=== PATIENT | female | born 1950 | race Caucasian/White ===

== ENCOUNTER 2017-09-20 12:04 | Emergency (ER) | payer MEDICARE, BC ==
--- NOTE | 2017-09-20 13:17 | CT ---
CT BRAIN NONCONTRAST: DATE: 09-20-17 HISTORY: 66-year-old female status post acute head injury. FINDINGS: There is no midline shift or any other mass effect. There is no evidence of acute intracranial hemor rhage, large cortical infarct, obstructive hydrocephalus, or extraaxial fluid collection. The calvar ium is intact. IMPRESSION: No acute intracranial findings. akua POS: [facility]
== END 2017-09-20 13:18 | disposition home or self-care (01) ==
LOC: BURERS 12:04
DX: S09.90XA Unspecified injury of head, initial encounter (principal); E11.9 Type 2 diabetes mellitus without complications; E03.9 Hypothyroidism, unspecified; I10 Essential (primary) hypertension; F32.9 Major depressive disorder, single episode, unspecified; Z79.82 Long term (current) use of aspirin; Z79.899 Other long term (current) drug therapy; W01.0XXA Fall on same level from slipping, tripping and stumbling without subsequent striking against object, initial encounter
CPT/HCPCS: 70450

== ENCOUNTER 2018-01-21 23:27 | Emergency (ER) | payer MEDICARE, BC ==
[2018-01-21] MEDS ORDERED: Bacitracin Zinc 1 Packet ONE (23:43)
== END 2018-01-21 23:55 | disposition home or self-care (01) ==
LOC: BURERS 23:27
DX: S51.802A Unspecified open wound of left forearm, initial encounter (principal); M19.90 Unspecified osteoarthritis, unspecified site; E11.9 Type 2 diabetes mellitus without complications; E03.9 Hypothyroidism, unspecified; I10 Essential (primary) hypertension; F32.9 Major depressive disorder, single episode, unspecified; Z79.899 Other long term (current) drug therapy; Z79.82 Long term (current) use of aspirin; W18.30XA Fall on same level, unspecified, initial encounter
CPT/HCPCS: 99282

== ENCOUNTER → 2018-03-09 | Emergency (ER) | payer MEDICARE, BC ==
--- NOTE | 2018-03-09 20:33 | CT ---
CT OF THE BRAIN WITHOUT CONTRAST; 03/09/18 Comparison is made with the prior study dated 09/20/17. The ventricles remain normal in size and show no shift. No intracranial bleeding, mass, or sign of ac rina stroke was found. The skull is normal in appearance. The visible paranasal sinuses and mastoid a ir cells are clear. IMPRESSION: No acute intracranial finding. POS: HOME
== END ==
LOC: BURERS 16:22
DX: S09.90XA Unspecified injury of head, initial encounter (principal); E11.9 Type 2 diabetes mellitus without complications; E03.9 Hypothyroidism, unspecified; I10 Essential (primary) hypertension; F32.9 Major depressive disorder, single episode, unspecified; Z79.82 Long term (current) use of aspirin; Z79.899 Other long term (current) drug therapy; W01.198A Fall on same level from slipping, tripping and stumbling with subsequent striking against other object, initial encounter
CPT/HCPCS: 70450

== ENCOUNTER 2018-08-07 17:59 | Emergency (ER) | payer MEDICARE ==
--- NOTE | 2018-08-07 20:46 | CT ---
CT BRAIN PERFORMED WITHOUT CONTRAST ENHANCEMENT: History: Post fall hitting back of head. FINDINGS: Generalized ventricular and sulcal prominence. There are no signs of intracerebral hemorrhage or extr aaxial fluid collections. Mastoid air cells are clear. The mucosal change in the ethmoid air cells an d almost complete opacification of the left sphenoid air cells. IMPRESSION: No acute intracranial abnormality. POS: [facility]
--- NOTE | 2018-08-07 21:23 | RAD ---
LUMBAR SPINE THREE VIEWS: History: Fall with back pain. FINDINGS: The vertebral bodies are normal in height. Degenerative osteophytes are seen along the spine with lu e areas of some mild disc narrowing. No compression fractures. Pedicles are intact. Vascular calcific ations are present. A round somewhat opaque density is seen in the right upper abdomen. This would be in the location of the gallbladder. It does have a typical appearance of a calcified gallbladder. It would be an unusual appearance for sludge. The other possibility is that this is some sort of slight ly hyperdense mass in the right upper quadrant. IMPRESSION: 1. Arthritic changes of the spine with no acute injury. 2. Round somewhat opaque density in the right upper quadrant of uncertain etiology, possibly gallblad debra or some type of slightly hyperdense mass. Further evaluation with a right upper quadrant ultrasou nd may be helpful in assessment. POS: [facility]
== END 2018-08-07 19:25 | disposition home or self-care (01) ==
LOC: BURERS 17:59
DX: S06.0X0A Concussion without loss of consciousness, initial encounter (principal); S39.012A Strain of muscle, fascia and tendon of lower back, initial encounter; E11.9 Type 2 diabetes mellitus without complications; E03.9 Hypothyroidism, unspecified; I10 Essential (primary) hypertension; F32.9 Major depressive disorder, single episode, unspecified; Z79.82 Long term (current) use of aspirin; Z79.899 Other long term (current) drug therapy; W17.89XA Other fall from one level to another, initial encounter
CPT/HCPCS: 70450; 72100

== ENCOUNTER 2019-03-30 11:52 | Emergency (ER) | payer MEDICARE, OTHER ==
[2019-03-30] MEDS ORDERED: Silver Nitrate Application 1 EACH ONE (15:01)
--- NOTE | 2019-03-30 17:07 | CT ---
CT OF THE BRAIN WITHOUT CONTRAST: 03/30/19 The ventricles are normal in size for age and show no shift. No intracranial bleeding or extra-axial hematoma was seen. The skull appears intact. There is nearly complete opacification of the right maxi llary sinus and mucosal thickening is seen in the left sphenoid sinus and some of the left posterior ethmoid air cells. See CT of the face report to follow. IMPRESSION: No acute intracranial findings. POS: HOME
--- NOTE | 2019-03-30 17:14 | CT ---
CT OF THE FACIAL BONES: 03/30/[address] of the face was done following trauma. Axial slices were acquired followed by coronal and s agittal reconstructions. There is nearly complete opacification of the right maxillary sinus. The anterior, lateral and medial byrne of the sinus appear intact. There are some unusual lines in the roof of this sinus/floor of th e right orbit. I cannot absolutely confirm if these are fracture lines or not, however, even if they are, there is no significant displacement of fragments from the orbital floor. Concomitantly, there i s definite mucosa thickening in the left side of the sphenoid sinus and several of the left posterior ethmoid air cells. Thus, chronic sinusitis is present in this patient anyway. The appearance in the right maxillary sinus seems more like mucosal thickening than acute fluid. The nasal bones appear intact. The right nasal bone turns inward a little more than the left, but the re is no septal deviation or evidence of definite acute fracture here. The zygomatic arches are intac t, as is the mandible. IMPRESSION: 1. Findings consistent with chronic sinusitis with changes in the left sphenoid and left ethmoid air cells and presumably the right maxillary sinus. 2. Some equivocal lines in the floor of the right orbit anteriorly. Even if real, they would rep resent a nondisplaced fracture. (SEE ADDENDUM TO FOLLOW) Findings discussed with Dr. Curry at 1247 on 03/30/19. POS: HOME
== END 2019-03-30 12:58 | disposition home or self-care (01) ==
LOC: BURERS 11:52
DX: S00.83XA Contusion of other part of head, initial encounter (principal); S05.11XA Contusion of eyeball and orbital tissues, right eye, initial encounter; S00.31XA Abrasion of nose, initial encounter; E11.9 Type 2 diabetes mellitus without complications; E03.9 Hypothyroidism, unspecified; I10 Essential (primary) hypertension; Z79.82 Long term (current) use of aspirin; W18.30XA Fall on same level, unspecified, initial encounter
CPT/HCPCS: 70450; 70486

== ENCOUNTER 2020-04-11 00:55 | Inpatient (IN) | payer MEDICARE ==
[2020-04-11 01:44] LABS: #Basophils 0.1 thou/uL (0.0-0.2); #Lymphocytes 1.6 thou/uL (1.20-3.40); #Monocytes 0.6 thou/uL (0.11-0.59); #Neutrophils 10.1 thou/uL (1.40-6.50); %Basophils 0.8 % (0.0-1.0); %Eosinophils 0.4 % (0.0-10.0); %Lymphocytes 12.9 % (21.0-51.0); %Monocytes 4.7 % (0.0-10.0); %Neutrophils 81.1 % (42.0-75.0); Mean Corpuscular HGB CONC 32.1 g/dL (32.0-36.0); Mean Corpuscular Hemoglobin 28.8 pg (27.0-31.0); Mean Corpuscular Volume 89.5 fL (78.0-98.0); Mean Platelet Volume 8.5 fL (7.4-10.4); Platelet Count 266 thou/uL (130-400); RBC Distribution Width 13.6 % (11.5-14.5); Red Blood Cell (RBC) Count 4.51 mill/uL (4.20-5.40); White Blood Cell (WBC) Count 12.5 thou/uL (4.8-10.8)
[2020-04-11 01:57] LABS: ALT (SGPT) 64 U/L (8-55); AST (SGOT) 117 U/L (5-34); Albumin 3.9 g/dL (3.4-4.8); Alkaline Phosphatase 42 U/L (40-110); Anion Gap 23 mmol/L (10-20); BUN (Urea Nitrogen) 34 mg/dL (9.8-20.1); CK (CPK) 3572 U/L (29-168); Calc. Creatinine Clearance 0 mL/min (70-130); Calcium 9.6 mg/dL (7.8-10.44); Carbon Dioxide 20 mmol/L (23-31); Chloride 104 mmol/L (98-107); Globulin 2.9 g/dL (2.4-3.5); Glucose 165 mg/dL (83-110); Potassium 3.5 mmol/L (3.5-5.1); Protein, Total 6.8 g/dL (6.0-8.3); Sodium 143 mmol/L (136-145)
[2020-04-11 02:01] LABS: INR-International Normal Ratio 1.1; Prothrombin Time 14.7 sec (12.0-14.7)
[2020-04-11 02:07] LABS: Bilirubin Moderate (Negative); Blood, Urine Moderate (Negative); Clarity Slightly Cloudy (Clear); Glucose, Urine (Dipstick) Negative (Negative); Ketone, Urine 15 mg/dL (Negative); Leukocyte Negative (Negative); Nitrite Negative (Negative); Protein, Urine (Dipstick) Trace mg/dL (Neg-Trace); Urobilinogen 0.2 mg/dL (Less than 2)
[2020-04-11] MEDS ORDERED: Famotidine In NaCl 20 mg/50 ml Premix Bag ONE (02:14)
[2020-04-11 02:16] LABS: Bacteria/HPF Rare-Few HPF (None Seen); RBC/HPF 0-3 HPF (0-3); Specific Gravity, Urine 1.026 (1.002-1.036); Squamous Epithelial 0-3 HPF (0-3); WBC/HPF 0-3 HPF (0-3)
[2020-04-11] MEDS ORDERED: Lorazepam 0.5 MG TAB ONE (03:29)
[2020-04-11] MEDS ORDERED: Ondansetron ODT 4 MG TAB SL PRN (05:00)
[2020-04-11] MEDS ORDERED: HYDROcodone/Acetaminophen 5/325 mg Tablet PO PRN (05:00)
[2020-04-11] MEDS ORDERED: Cyclobenzaprine 10 MG TAB PO PRN (06:57)
[2020-04-11] MEDS ORDERED: traMADol HCl 50 MG TAB PO PRN (07:10)
--- NOTE | 2020-04-11 07:12 | CT ---
PRELIMINARY REPORT/[facility]/EMERGENCY AFTER HOURS PROCEDURE: EXAM: CT Head Without Intravenous Contrast. CLINICAL HISTORY: MULTIPLE FALL AND BRUISING, WELFARE CONCERN FROM [place] UNABLE TO GET PT UP. EMS CONCERNED FOR P T SAFETY, BROUGHT TO ED. PT C/O SOME NECK/SHOULDER CRAMPING. IN C-COLLAR ON ARRIVAL, A POSSBILE ALLER GY TO IODINE-NO CONTRAST TECHNIQUE: Axial computed tomography images of the head/brain without intravenous contrast. COMPARISON: None provided. FINDINGS: BRAIN: No acute intraparenchymal hemorrhage. No mass lesion. No CT evidence for acute territorial infarct. N o midline shift or extra-axial collection. VENTRICLES: No hydrocephalus. ORBITS: The orbits are unremarkable. SINUSES AND MASTOIDS: The paranasal sinuses and mastoid air cells are clear. SOFT TISSUES: No significant facial or scalp soft tissue swelling evident. No radiopaque foreign body is seen. BONES: No acute skull fracture. IMPRESSION: No acute intracranial abnormality. ELECTRONICALLY SIGNED BY: Giselle Brown DO Apr 11, 2020 2:44:09 AM [employer] This report is intended for review by the ordering physician only, in accordance of law. If you recei ve this report in error, please call [facility] at [phone]. FINAL REPORT CT OF THE BRAIN WITHOUT CONTRAST: Date: 04/11/[address] of the brain was done following trauma. Comparison made with an 03/30/2019 CT scan. The ventricles are normal in size for age and atrophy and show no shift. No intracranial bleeding, ma ss, or sign of acute stroke found. There is no sign of extra-axial hematoma. The skull appears intact . There is chronic mucosal thickening in the right maxillary sinus, which is substantial, but actuall y improved compared to the 2019 study. There is also chronic thickening in the left side of the sphen oid sinus, slightly more than last year. The mastoid air cells are clear. IMPRESSION: 1. No acute intracranial findings. 2. Chronic sinusitis, particularly right maxillary and left sphenoid. Report in agreement with preliminary reading by [facility]. POS: HOME
--- NOTE | 2020-04-11 07:13 | CT ---
PRELIMINARY REPORT/[facility]/EMERGENCY AFTER HOURS PROCEDURE: EXAM: CT Cervical Spine Without Intravenous Contrast. CLINICAL HISTORY: MULTIPLE FALL AND BRUISING, WELFARE CONCERN FROM [place] UNABLE TO GET PT UP. EMS CONCERNED FOR P T SAFETY, BROUGHT TO ED. PT C/O SOME NECK/SHOULDER CRAMPING. IN C-COLLAR ON ARRIVAL, A POSSBILE ALLER GY TO IODINE-NO CONTRAST TECHNIQUE: Axial computed tomography images of the cervical spine without intravenous contrast. Sagittal and cor onal reformations performed. COMPARISON: None provided. FINDINGS: BONES: No acute fracture or focal osseous lesion. Bony alignment is anatomic. DISCS / DEGENERATIVE CHANGES: Mild spur formation off of the vertebral bodies at the C4 through the C6 vertebral levels. Mild circ umferential bulging discs are present at the C4-5 and C5-6 levels. The spinal canal is adequate at a ll levels. SOFT TISSUES: No prevertebral soft tissue swelling. No apical pneumothorax. IMPRESSION: No acute cervical spine abnormality. Mild cervical spondylosis and degenerative disc change as discu ssed. ELECTRONICALLY SIGNED BY: Giselle Brown DO Apr 11, 2020 2:46:09 AM ROLLER PRINT TENDER This report is intended for review by the ordering physician only, in accordance of law. If you recei ve this report in error, please call [facility] at [phone]. FINAL REPORT CT OF THE CERVICAL SPINE: Date: 04/11/[address] of the cervical spine was performed following trauma. No fracture, dislocation, or soft tissue swelling was seen in the cervical area. There is disc space narrowing at the C4-C5 area. Small osteophytes are seen anteriorly at the mid cervical level. Findings by level follow: C1-C2: No acute findings. C2-C3: No acute findings. C3-C4: No acute findings. C4-C5: Disc osteophyte complex posteriorly without obvious impingement. C5-C6: Small circumferential disc osteophyte complex. No signs of impingement or foraminal narrowing . C6-C7: No acute findings. C7-T1: No acute findings. T1-T2: No acute findings. Bony densities near the tips of the spinous processes of C6 and C7 are probably just ossification of the ligamentum nuchae, less likely old trauma. This is certainly not acute. There are no signs of pneumothorax in the lung apices. No findings of concern were seen in the soft t issues of the neck. IMPRESSION: Cervical spondylosis, but no acute traumatic changes. Report in agreement with preliminary reading by [facility]. POS: HOME
[2020-04-11] MEDS ORDERED: Dextrose 5% in Water 1,000 ML IV PRN (07:14)
[2020-04-11] MEDS ORDERED: Dextrose 50% Abboject 50 ML SYRINGE SLOW IVP PRN (07:14)
--- NOTE | 2020-04-11 07:15 | CT ---
PRELIMINARY REPORT/[facility]/EMERGENCY AFTER HOURS PROCEDURE: EXAM: CT Chest Without Intravenous Contrast. CT Abdomen and Pelvis Without Intravenous Contrast CLINICAL HISTORY: MULTIPLE FALL AND BRUISING, WELFARE CONCERN FROM [place] UNABLE TO GET PT UP. EMS CONCERNED FOR P T SAFETY, BROUGHT TO ED. PT C/O SOME NECK/SHOULDER CRAMPING. IN C-COLLAR ON ARRIVAL, A POSSBILE ALLER GY TO IODINE-NO CONTRAST TECHNIQUE: Axial computed tomography images of the chest, abdomen and pelvis without intravenous contrast. CONTRAST: Without COMPARISON: None provided. FINDINGS: CHEST: LUNGS: No pulmonary mass. No focal airspace consolidation. PLEURAL SPACES: No pleural effusion. No pneumothorax. HEART AND MEDIASTINUM: No cardiomegaly. No significant pericardial effusion. LYMPH NODES: No lymphadenopathy. ABDOMEN AND PELVIS: LIVER: Unremarkable. No focal lesions. GALLBLADDER AND BILE DUCTS: Stones identified within the gallbladder lumen. No dilatation of the biliary ductal system.. PANCREAS: Unremarkable. SPLEEN: Unremarkable. ADRENAL GLANDS: Unremarkable. KIDNEYS, URETERS, AND BLADDER: Unremarkable. No hydronephrosis. Right renal calculi as noted. The partially filled urinary bladde r is unremarkable. STOMACH AND BOWEL: No obstruction. No wall thickening. No CT evidence of colitis or acute diverticulitis. APPENDIX: No CT evidence for appendicitis. PERITONEUM: No free fluid. No free air. LYMPH NODES: No lymphadenopathy. REPRODUCTIVE: The uterus is absent. No pelvic masses. VASCULATURE: No aortic aneurysm. BONES AND SOFT TISSUES: No acute osseous abnormality. The soft tissues are unremarkable. Moderate thoracic and lumbar spondy losis. IMPRESSION: No acute intra-thoracic, intra-abdominal, or intra-pelvic abnormality. Cholelithiasis. Right renal calculi are noted. No hydronephrosis. ELECTRONICALLY SIGNED BY: Giselle Brown DO Apr 11, 2020 2:50:46 AM SPECIAL DELIVERY MESSENGER This report is intended for review by the ordering physician only, in accordance of law. If you recei ve this report in error, please call [facility] at [phone]. FINAL REPORT CT CHEST AND ABDOMEN AND PELVIS WITHOUT CONTRAST: Date: 04/11/[address] of the chest, abdomen, and pelvis was performed following trauma. Axial slices were acquire d, followed by coronal and sagittal reconstructions. CT THORAX: Within the limitations of a noncontrast study, there were no traumatic findings seen. No sign of medi astinal hematoma, aortic aneurysm, or leakage, or pericardial effusion. No mediastinal mass or signif icant adenopathy seen. The lungs are clear with no signs of contusion, pneumothorax, or pleural effus ion. A calcified granuloma is seen in the left lower lobe. Some mild coronary artery calcifications a re present. The thoracic spine and ribs appear intact, as does the sternum. CT ABDOMEN AND PELVIS: Within the limitations of the noncontrast study, there was no sign of laceration or hematoma to any m ajor organ. The liver, spleen, pancreas, adrenal glands, kidneys, and abdominal aorta showed no acute findings. There is at least one large gallstone in the gallbladder and at least one small nonobstruc ting calculus in the lower pole of the right kidney. The bowel is nondistended. There is no inflammatory change associated with bowel. I am not impressed by any extensive diverticulosis, only a few rare diverticula were seen. The appendix appears normal. No free air or free fluid present. CT of the pelvis shows no pelvic masses, signs of hemorrhage, or other fluid collections. The bony pe lvis appears intact. The lumbar spine showed no fracture. There is some mild concentric bulging of th e L2-L3 disc, and to a lesser extent L3-L4. The hips appeared intact. IMPRESSION: 1. No acute traumatic changes in the chest, abdomen, or pelvis. 2. Gallstone. 3. Nonobstructing right renal calculus. Report in agreement with preliminary reading by [facility]. POS: HOME
[2020-04-11 08:08] VITALS: BMI 40.2
[2020-04-11] MEDS: Sodium Chloride 0.9% 1,000 ML IV SCH ×5 (08:36→22:26)
[2020-04-11] MEDS ORDERED: LAMOTRIGINE 100 MG PO SCH (09:00)
[2020-04-11] MEDS ORDERED: metFORMIN 500 MG TAB PO SCH (09:00)
[2020-04-11] MEDS ORDERED: Non-Formulary Item 1 EACH (Metformin Hcl [Metformin Er Gastric] 1,000 MG Tabergr24h) PO SCH (09:00)
[2020-04-11] MEDS ORDERED: Meloxicam 7.5 MG TAB PO SCH (09:00)
[2020-04-11] MEDS ORDERED: SERTRALINE HCL 100 MG PO SCH (09:00)
[2020-04-11] MEDS ORDERED: [UNRECOGNIZED DRUG - OTHER] PO SCH (09:00)
[2020-04-11] MEDS ORDERED: PROPRANOLOL 60 MG PO SCH (09:00)
[2020-04-11] MEDS ORDERED: LOSARTAN PO SCH (09:00)
[2020-04-11] MEDS ORDERED: Non-Formulary Item 1 EACH (Esomeprazole Magnesium [Nexium] 20 MG Capsule.Dr) PO SCH (09:00)
[2020-04-11] MEDS ORDERED: Losartan Potassium 50 MG TAB PO SCH (09:00)
[2020-04-11] MEDS ORDERED: Hydrochlorothiazide 25 MG TAB PO SCH (09:00)
[2020-04-11] MEDS ORDERED: Non-Formulary Item 1 EACH (Levothyroxine Sodium [Synthroid] 200 MCG Tablet) PO SCH (09:00)
[2020-04-11] MEDS ORDERED: HYDROCHLOROTHIAZIDE PO SCH (09:00)
[2020-04-11] MEDS ORDERED: lamoTRIgine 25 MG TAB PO SCH ×2 (09:00→21:00)
[2020-04-11] MEDS ORDERED: MELOXICAM 15 MG PO SCH (09:00)
[2020-04-11 14:03] LABS: #Basophils 0.1 thou/uL (0.0-0.2); #Eosinphils 0.2 thou/uL (0.0-0.7); #Lymphocytes 2.3 thou/uL (1.20-3.40); #Monocytes 0.5 thou/uL (0.11-0.59); #Neutrophils 5.5 thou/uL (1.40-6.50); %Basophils 0.9 % (0.0-1.0); %Eosinophils 2.4 % (0.0-10.0); %Lymphocytes 26.4 % (21.0-51.0); %Monocytes 5.4 % (0.0-10.0); Hemoglobin 11.3 g/dL (12.0-16.0); Mean Corpuscular HGB CONC 29.3 g/dL (32.0-36.0); Mean Corpuscular Hemoglobin 27.6 pg (27.0-31.0); Mean Corpuscular Volume 94.4 fL (78.0-98.0); Mean Platelet Volume 8.4 fL (7.4-10.4); Platelet Count 247 thou/uL (130-400); RBC Distribution Width 14.1 % (11.5-14.5); Red Blood Cell (RBC) Count 4.09 mill/uL (4.20-5.40); White Blood Cell (WBC) Count 8.5 thou/uL (4.8-10.8)
[2020-04-11] MEDS ORDERED: Bisacodyl 5 MG TAB PO PRN (14:17)
[2020-04-11 14:25] LABS: Anion Gap 16 mmol/L (10-20)
[2020-04-11 14:34] LABS: BUN (Urea Nitrogen) 26 mg/dL (9.8-20.1); CK (CPK) 2349 U/L (29-168); Calc. Creatinine Clearance 98 mL/min (70-130); Calcium 8.1 mg/dL (7.8-10.44); Carbon Dioxide 21 mmol/L (23-31); Chloride 106 mmol/L (98-107); Glucose 141 mg/dL (83-110); Potassium 3.4 mmol/L (3.5-5.1); Sodium 140 mmol/L (136-145)
[2020-04-11] MEDS: clonazePAM 0.5 MG TAB PO SCH ×2 (15:45→21:06)
[2020-04-11] MEDS: Propranolol HCl 20 MG TAB PO SCH (15:48)
[2020-04-11] MEDS: Ondansetron PF 4 MG/2 ML Vial IVP PRN (17:53)
[2020-04-11] MEDS ORDERED: FLU VACC QS2020-21(65YR UP)/PF 240 MCG/0.7 ML SYRINGE IM ONE (21:00)
[2020-04-11] MEDS ORDERED: rOPINIRole HCl 2 MG TAB PO SCH (21:00)
[2020-04-11] MEDS ORDERED: Non-Formulary Item 1 EACH (Vitamin B Complex [Vitamin B Complex] 1 EACH Tablet) PO SCH (21:00)
[2020-04-11] MEDS ORDERED: Non-Formulary Item 1 EACH (Trazodone Hcl [Trazodone Hcl] 100 MG Tablet) PO SCH (21:00)
[2020-04-11] MEDS ORDERED: traZODone HCl 50 MG TAB PO SCH (21:00)
[2020-04-11] MEDS ORDERED: ROPINIROLE HCL 1 MG PO SCH (21:00)
[2020-04-11] MEDS ORDERED: Non-Formulary Item 1 EACH (Cholecalciferol (Vitamin D3) [Vitamin D3] 1,000 UNIT Capsule) PO SCH (21:00)
[2020-04-11] MEDS ORDERED: Non-Formulary Item 1 EACH (Lamotrigine [Lamotrigine] 200 MG Tablet) PO SCH (21:00)
[2020-04-11] MEDS ORDERED: DONEPEZIL HCL 5 MG PO SCH (21:00)
[2020-04-11] MEDS: Cholecalciferol 1,000 UNITS (25 MCG) TAB PO SCH (21:06)
[2020-04-11] MEDS: Donepezil HCl 10 MG TAB PO SCH (21:07)
[2020-04-11] MEDS: Stress 600 With Zinc 1 TAB PO SCH (21:08)
[2020-04-11] MEDS: Acetaminophen 325 MG TAB PO PRN (21:19)
[2020-04-11 22:10] LABS: SARS-CoV-2 MS2 Positive; SARS-CoV-2 N Gene Negative; SARS-CoV-2 S Gene Negative; SARS-CoV-2 by NAA Not Detected (NotDetected); SARS-CoV-2 orf1ab Negative
[2020-04-12] MEDS: Levothyroxine Sodium 100 MCG TAB PO SCH (05:46)
[2020-04-12] MEDS: Sodium Chloride 0.9% 1,000 ML IV SCH ×2 (06:38→14:43)
[2020-04-12] MEDS: clonazePAM 0.5 MG TAB PO SCH ×2 (08:05→20:12)
[2020-04-12] MEDS: Propranolol HCl 20 MG TAB PO SCH (08:05)
[2020-04-12 15:17] LABS: Anion Gap 15 mmol/L (10-20); BUN (Urea Nitrogen) 17 mg/dL (9.8-20.1); CK (CPK) 661 U/L (29-168); Calc. Creatinine Clearance 111 mL/min (70-130); Calcium 7.9 mg/dL (7.8-10.44); Carbon Dioxide 22 mmol/L (23-31); Chloride 105 mmol/L (98-107); Glucose 187 mg/dL (83-110); Potassium 3.7 mmol/L (3.5-5.1); Sodium 138 mmol/L (136-145)
[2020-04-12] MEDS: Acetaminophen 325 MG TAB PO PRN ×2 (16:15→20:19)
[2020-04-12] MEDS: Cholecalciferol 1,000 UNITS (25 MCG) TAB PO SCH (20:12)
[2020-04-12] MEDS: Donepezil HCl 10 MG TAB PO SCH (20:12)
[2020-04-12] MEDS: rOPINIRole HCl 2 MG TAB PO SCH (20:12)
[2020-04-12] MEDS: Stress 600 With Zinc 1 TAB PO SCH (20:14)
[2020-04-12] MEDS ORDERED: rOPINIRole HCl 2 MG TAB PO SCH (21:45)
[2020-04-13] MEDS: Acetaminophen 325 MG TAB PO PRN (02:57)
[2020-04-13 05:33] LABS: Anion Gap 17 mmol/L (10-20); BUN (Urea Nitrogen) 13 mg/dL (9.8-20.1); CK (CPK) 300 U/L (29-168); Calc. Creatinine Clearance 124 mL/min (70-130); Calcium 8.2 mg/dL (7.8-10.44); Carbon Dioxide 20 mmol/L (23-31); Chloride 104 mmol/L (98-107); Glucose 145 mg/dL (83-110); Potassium 3.5 mmol/L (3.5-5.1); Sodium 137 mmol/L (136-145)
[2020-04-13] MEDS: Levothyroxine Sodium 100 MCG TAB PO SCH (05:35)
--- NOTE | 2020-04-13 06:19 | HP ---
HISTORY OF PRESENT ILLNESS: This is a 69-year-old female admitted 23 hour observation with rhabdomyolysis from [facility] Emergency Room. She arrived per EMS just after from her home, where she was found lying on the bathroom floor. Her adult daughter had requested a welfare check after the patient failed to answer her phone. She was found confused and disoriented and unable to give an account of her presumed fall or how long she had been lying there. She is afebrile with stable vital signs, but covered in large bruises over her arms, left breast, and abdomen. She complained of neck and shoulder cramping, and restless legs syndrome. Her daughter reports recent multiple falls and alteredmental status. She has a history of dementia, and her home medication list includes multiple sedating agents and three narcotic pain medications. Online prescription drug monitoring program review only shows clonazepam 0.5 mg #60, which she has been prescribed monthly. Her last narcotic pain medication was tramadol in January of 2020. Daughter further reports recent history of confusion, mixing up days and nights, referring to a recent trip taken, going to [place] with her son in law, commenting on her travel, going to a conference, adopting a baby, seeing people,friends, past family members, none of which the daughter reports have taken place, and other accounts of a bizarre nature that have not actually taken place. The patient is unable to say how long she had been lying on the bathroom floor, and the last day she remembers is 3 days ago. Although she admits daily alcohol of "honey whiskey," she would not quantify her daily or recent intake. Daughter agrees that she may be drinking heavily; she lives alone and still drives. Her initial CK was 3572 with elevated WBCs of 12.5 and urine ketones. Her glucose was 165, CO2 of 20, and creatinine 1.05. Below is an initial list of medications either found in home or listed by the patient as taking. She later stated she was no longer taking lamotrigine, which was on the original list, and found in the home. She is followed by Dr. Perry for mental health. She reports a diagnosis of "OCD" and depression. She admits to taking "occasional" hydrocodone from an old prescription. Her daughter reports her home is uninhabitable because of accumulated trash and debris. Her PCP is Dr. Bridges in [facility] her Ortho is Dr. Lauren and Dr. David Perry is her psychiatrist. Her daughter is Selina Conner, cell phone # is [phone]. CURRENT MEDICATIONS: 1. Sertraline 200 mg daily. 2. Klonopin 0.5 mg b.i.d. 3. Propranolol 60 mg. Original med list or found in home: 1. Tramadol 50 mg. 2. Acetaminophen with Codeine. 3. Donepezil 5 mg. 4. Fenofibrate 134 mg. 5. Cyclobenzaprine 10 mg. 6. Lamotrigine 100 mg a.m. and 200 mg p.m. 7. Losartan/hydrochlorothiazide 100/25 daily. 8. Metformin 1000 mg daily. 9. Meloxicam 15 mg. 10. Esomeprazole 40 mg daily. 11. Ropinirole 3 mg at bedtime. 12. Levothyroxine 200 mcg. 13. Trazodone 200 mg at bedtime. 14. Vitamin B complex one daily. 15. Vitamin D3 of 1000 units capsules at bedtime. PAST MEDICAL HISTORY: Hypothyroidism, hypertension, restless legs syndrome, diabetes type 2, and osteoarthritis. On 02/13/2020, she had a left partial rotator cuff tear that was injected by Dr. Lauren. PAST SURGICAL HISTORY: Tonsillectomy, hysterectomy, left shoulder rotator cuff debridement and decompression on 08/02/2011, and right total knee replacement on 03/16/2016. FAMILY HISTORY: She has one living daughter, who is healthy. Her parents are both . ALLERGIES: NO KNOWN ALLERGIES. REVIEW OF SYSTEMS: CONSTITUTIONAL: She denies fevers, chills, sweats, appetite change, or weight loss or gain. EYES: She denies vision changes, eye pain, discharge, or redness. ENT: She denies hearing loss, ear pain, URI, or sore throat. RESPIRATORY: She denies cough, dyspnea, wheeze, or asthma. CV: She denies chest pain, dyspnea on exertion, orthopnea, edema, or claudication. GI: She reports occasional constipation. Denies diarrhea, indigestion, dysphagia, or food allergy intolerances. : She admits urinary frequency. Denies dysuria, nocturia, or incontinence. MUSCULOSKELETAL: She reports multiple joint pains. Denies joint swelling or muscle weakness. SKIN: She denies rash. HEMATOLOGIC/LYMPHATIC: She denies that she bruises easily and has no explanation for the multiple bruises that she currently has. She denies anemia, history of blood clot, or blood cancer. NEURO: She admits forgetfulness and mild dementia and confusion. She denies dizziness. Does not remember passing out. Denies headache. PSYCH: She reports past mental illness, sleep disturbance, depression, and anxiety. PHYSICAL EXAMINATION: VITAL SIGNS: Upon admission; temperature 98, heart rate 84, blood pressure 134/79, respirations 17, and she is 98% on room air. GENERAL APPEARANCE: Alert. She is oriented x3 at present. She was somewhat disheveled. No acute distress. Obese. Her speech is slurred. EYES: Conjunctivae clear. No discharge. ENT: Oral cavity, moist mucous membranes. No ulcer or lesion. Normal dentition. NECK: Thyroid supple. No lymphadenopathy. No JVD. No carotid bruit. No thyromegaly. CV: Regular rate and rhythm. Normal S1 and S2. No murmurs. RESPIRATIONS: Clear to auscultation. Good air entry bilaterally. No crackles or wheezes. ABDOMEN: Soft and nontender. No mass or megaly. Normal bowel sounds. NEURO: CN II through XII grossly intact. She is lying in bed, but motor function appears normal. She is able to move all extremities. SKIN: Without rash. However, she has a large bruises in varying states of healing over arm, forearm, under her breast, right axillary region, right flank, and abdomen. She has no explanation for these bruises. PSYCH: Her mood is wet plant operator, tearful, jovial almost, inappropriate in that she is joking about her situation and her inability to remember what happened and she is unable to recall the incident that occurred 3 days ago. She exhibits thought disorder in that she reported to the nurses that someone was in her bathroom and she threw her silverware and her biscuit from her breakfast tray at this person. LABORATORY DATA: Initial WBC's 12.5, neutrophils 81.1, lymphocytes 12.9, and her H and H were 13 and 40.3. A 12 hours later, H and H were 11.3 and 38.6 and WBC's 8.5. Her INR upon admission was 1.1. Chemistries upon admission; sodium 143, potassium 3.5, chloride 104, carbon dioxide 20, BUN 34, creatinine 1.05, glucose 165, and calcium 9.6. Her lactic acid was 1.1. Her AST was 117 and ALT 64. Her CK was 3572 and 12 hours later, her CK had come down to 2349, COVID negative. IMAGING: CT chest, abdomen, pelvis, C-spine, and head, all negative. ASSESSMENT: Rhabdomyolysis related to immobility for unknown period of days, likely as a result of altered mental status from combination polypharmacy and heavy alcohol use. PLAN: 1. IV hydration. Monitor CK and renal function. 2. Dementia versus delirium related to above. 3. Diabetes mellitus 2. Monitor glucose. Obtain A1c. Resume metformin once renal function normalizes, CK is less than 500, and acidosis resolves. 4. Polypharmacy combined with alcohol abuse. After discussion, the patient agreed to monitored inpatient detox. We will allow q.6 tramadol p.r.n. osteoarthritis joint pain. We will discontinue all narcotic pain medications aside from tramadol. Daughter advised to remove old/out of date medications from home and dispose of safely. Continue her usual b.i.d. benzo. Hold BP medications. Continue beta inocencio and propranolol. Pattern Wheel Maker has been consulted. APS report made. Arrangements will likely need to be made for half-way facility admission once her cognitive status normalizes. Cognitive and functional status is such that she is not safe to discharge home. In any case, she will need help returning to her home to a habitable safe place if she is to return. At this time, she is not safe to return home. Job ID: [id number] [facility]
[2020-04-13] MEDS: rOPINIRole HCl 2 MG TAB PO SCH ×2 (08:04→20:14)
[2020-04-13] MEDS: clonazePAM 0.5 MG TAB PO SCH ×2 (08:04→20:14)
[2020-04-13] MEDS: Losartan Potassium 50 MG TAB PO SCH (08:04)
[2020-04-13] MEDS: Propranolol HCl 20 MG TAB PO SCH (08:04)
[2020-04-13] MEDS ORDERED: Meloxicam 7.5 MG TAB PO SCH (09:00)
[2020-04-13] MEDS: Insulin Regular 300 UNITS/3 ML VIAL SC PRN ×2 (11:47→16:29)
[2020-04-13] MEDS ORDERED: Aspirin 325 MG TAB PO PRN (14:27)
[2020-04-13] MEDS: Acetaminophen 500 MG TAB PO PRN (15:58)
[2020-04-13] MEDS: Stress 600 With Zinc 1 TAB PO SCH (20:13)
[2020-04-13] MEDS: Cholecalciferol 1,000 UNITS (25 MCG) TAB PO SCH (20:13)
[2020-04-13] MEDS: Donepezil HCl 10 MG TAB PO SCH (20:13)
[2020-04-14] MEDS: Levothyroxine Sodium 100 MCG TAB PO SCH (05:28)
[2020-04-14] MEDS: Insulin Regular 300 UNITS/3 ML VIAL SC PRN ×2 (07:40→12:02)
[2020-04-14] MEDS: metFORMIN XR 500 MG TAB PO SCH (09:03)
[2020-04-14] MEDS: Propranolol HCl 20 MG TAB PO SCH (09:03)
[2020-04-14] MEDS: rOPINIRole HCl 2 MG TAB PO SCH (09:03)
[2020-04-14] MEDS: clonazePAM 0.5 MG TAB PO SCH (09:03)
[2020-04-14] MEDS: Losartan Potassium 50 MG TAB PO SCH (09:05)
[2020-04-14] MEDS: Acetaminophen 325 MG TAB PO PRN (09:07)
[2020-04-14 11:43] LABS: Hemoglobin A1c 6.8 % (4.0-6.0)
[2020-04-14 11:48] LABS: Parathyroid Hormone - Intact 30.1 pg/mL (19.8-88.0)
[2020-04-14 19:29] LABS: Band 13 % (5-11); Hemoglobin 12.1 g/dL (12.0-16.0); Lymphocytes 6 % (21-51); MDiff Complete? YES; Mean Corpuscular HGB CONC 31.1 g/dL (32.0-36.0); Mean Corpuscular Hemoglobin 28.1 pg (27.0-31.0); Mean Corpuscular Volume 90.4 fL (78.0-98.0); Mean Platelet Volume 8.2 fL (7.4-10.4); Monocytes 1 % (0-10); Neutrophil 80 % (42-75); Platelet Count 217 thou/uL (130-400); Red Blood Cell (RBC) Count 4.29 mill/uL (4.20-5.40); White Blood Cell (WBC) Count 7.2 thou/uL (4.8-10.8)
[2020-04-14 20:12] LABS: Carbon Dioxide 18 mmol/L (23-31); Chloride 100 mmol/L (98-107); Potassium 4.2 mmol/L (3.5-5.1); Sodium 131 mmol/L (136-145)
[2020-04-14 20:13] LABS: Anion Gap 17 mmol/L (10-20); BUN (Urea Nitrogen) 20 mg/dL (9.8-20.1); Calc. Creatinine Clearance 107 mL/min (70-130); Calcium 8.8 mg/dL (7.8-10.44); Glucose 171 mg/dL (83-110)
[2020-04-14] MEDS ORDERED: Sodium Chloride 0.9% 500 ML IV SCH (21:00)
--- NOTE | 2020-04-14 21:04 | RAD ---
PORTABLE CHEST: Date: 04/14/2020 An AP portable film at 1913 hours is compared with an 04/11/2020 CT scan, as well as a 05/11/[address] x-ray. The vessels seem slightly congested today compared to prior studies. The heart is mildly enlarged. Th ere is increased density in the left lung base, potentially in the lingula. This is not present on th e recent CT scan. Thus, an infiltrate developing here is suspected. I do not see fractures, signs of pneumothorax, or mediastinal widening. Arteriosclerotic change is present in the aorta. IMPRESSION: 1. Mild cardiomegaly and slight vascular congestion. 2. Findings suggestive of a developing left basilar infiltrate. Preliminary report taken to the floor at approximately 1940 hours. POS: HOME
[2020-04-14] MEDS: Sodium Chloride 0.9% 1,000 ML IV SCH (22:34)
[2020-04-14 22:41] LABS: Bilirubin Large (Negative); Blood, Urine Negative (Negative); Clarity Clear (Clear); Glucose, Urine (Dipstick) Negative (Negative); Ketone, Urine Trace mg/dL (Negative); Leukocyte Negative (Negative); Nitrite Negative (Negative); Protein, Urine (Dipstick) > or equal to 300 mg/dL (Neg-Trace); Specific Gravity, Urine 1.025 (1.005-1.030); Urobilinogen > or = 8.0 mg/dL (Less than 2); pH, Urine 5.5 (5.0-9.0)
[2020-04-14 22:42] LABS: Bacteria/HPF Rare-Few HPF (None Seen); Other Microscopic Description C&S SET UP; RBC/HPF 0-3 HPF (0-3); WBC/HPF 0-3 HPF (0-3)
[2020-04-14] MEDS: cefTRIAXone\\ROCEPHIN 2 GM in Sodium Chloride 0.9% 100 ML IVPB SCH (23:19)
[2020-04-15] MEDS: Cholecalciferol 1,000 UNITS (25 MCG) TAB PO SCH ×2 (03:42→20:23)
[2020-04-15] MEDS: clonazePAM 0.5 MG TAB PO SCH ×3 (03:42→20:23)
[2020-04-15] MEDS: Donepezil HCl 10 MG TAB PO SCH ×2 (03:42→20:24)
[2020-04-15] MEDS: Stress 600 With Zinc 1 TAB PO SCH ×2 (03:43→20:23)
[2020-04-15] MEDS: rOPINIRole HCl 2 MG TAB PO SCH ×3 (03:43→20:23)
[2020-04-15] MEDS: Levothyroxine Sodium 100 MCG TAB PO SCH (05:42)
[2020-04-15] MEDS: Propranolol HCl 20 MG TAB PO SCH (08:05)
[2020-04-15] MEDS: metFORMIN XR 500 MG TAB PO SCH (08:06)
[2020-04-15] MEDS: Losartan Potassium 50 MG TAB PO SCH (08:06)
[2020-04-15] MEDS: Insulin Regular 300 UNITS/3 ML VIAL SC PRN ×3 (08:11→17:24)
[2020-04-15 08:25] LABS: Anion Gap 18 mmol/L (10-20); BUN (Urea Nitrogen) 28 mg/dL (9.8-20.1); Calc. Creatinine Clearance 78 mL/min (70-130); Calcium 8.1 mg/dL (7.8-10.44); Carbon Dioxide 18 mmol/L (23-31); Chloride 101 mmol/L (98-107); Glucose 174 mg/dL (83-110); Potassium 4.2 mmol/L (3.5-5.1); Sodium 133 mmol/L (136-145)
[2020-04-15] MEDS: Acetaminophen 500 MG TAB PO PRN (11:47)
[2020-04-15] MEDS ORDERED: Thiamine 100 MG TAB PO SCH (12:30)
[2020-04-15] MEDS ORDERED: Folic Acid 1 MG TAB PO SCH (12:30)
--- OUTSIDE RECORDS SUMMARY | 2020-04-15 12:46 | XMS | Patient Health Record ---
:1950 Author Organization [facility] Care Team Providers Name Role Phone Jaymie Unavailable [phone] Terrance Unavailable [phone] Thanh Unavailable [phone] zzWu Unavailable [phone] Jauregui Unavailable [phone] zzSeward Unavailable [phone] zzOrtiz Unavailable [phone] Venegas Unavailable [phone] zzPerrott Unavailable [phone] Smith Unavailable [phone] PROBLEMS Type Condition ICD9-CM [id number] Onset Condition SNOMED Code Notes Code Code Dates Status Problem Bursitis, Hip or 726.5 Active 41928298 trochanteric Problem DJD (degenerative 715.36 Active 488585830 joint disease) of knee Problem Other affections of 726.2 Active 378937673 shoulder region, not elsewhere classified Problem Primary M17.11 Active 157162454 osteoarthritis of right knee Problem Knee pain 719.46 Active 62211909 Problem Bursitis of M75.51 Active 155031568 shoulder, right Problem Trochanteric M70.61 Active 1494292 bursitis, Right hip Problem Right rotator cuff M75.81 Active 363252403 tendinitis Problem Primary M17.12 Active 795042106 osteoarthritis of left knee Problem 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 5594530156749 knee replacement, right Problem Greater trochanteric M70.62 Active 5896860 bursitis of left hip Problem Acromioclavicular M19.90 Active 104803127 joint arthritis Problem Nontraumatic M75.112 Active 038901607 incomplete tear of left rotator cuff Problem Tear of right M75.101 Active 214477667 rotator cuff, unspecified tear extent Problem Primary M19.011 Active 97018520 osteoarthritis, right shoulder Problem Patellofemoral M17.12 Active 476437242 arthritis of left knee Problem Biceps tendinitis of M75.21 Active 290732470 right shoulder Problem Osteoarthritis of M18.9 Active 99927573 CMC joint of thumb ALLERGIES Allergen (clinical Drug/Non Drug Reaction Allergy Type Onset Date S tatus drug ingredient) Allergy documented on EMR Iodine([facility] Unknown Drug Allergy Active Code:10891-15773) Statins Unknown Drug Allergy Active SOFIA Inhibitors Unknown Drug Allergy Active Sudafed([facility] Unknown Drug Allergy Active Code:[address]-16) povidone-iodine Betadine([facility] Unknown Drug Allergy Activ e Code:[address]-53) PSE Unknown Non Drug Allergy Active topiramate Topamax([facility] Unknown Drug Allergy Active Code:[address]-37) ENCOUNTERS from 1950 to 2020-04-15 Encounter Location Date Provider Diagnosis [facility] [address] Mar, [address] [place] [address] IMMUNIZATIONS Vaccine Route Administration Date Status Depo-Medrol (METHYLPREDnisolone) 80mg Unknown Feb 12, 020 Administered Depo-Medrol (METHYLPREDnisolone) 80mg Unknown May 03 19 Administered SOCIAL HISTORY Tobacco Use: Social History Observation Description Date Details (start date - stop date) Never Smoker Sex Assigned At : Social History Observation Description Sex Assigned At Unknown Smoking Question Answer Notes Are you a: never smoker REASON FOR REFERRAL from 1950 to 2020-04-15 Reason CCM request Referring Provider First Name Myke Referring Provider Last Name Luis Referring Provider Specialty Orthopedic Surgery Referring Provider email [email or web address] Referred Provider [facility], Medical Records Referral Priority Routine VITAL SIGNS from 1950 to 2020-04-15 Weight 230 lbs Jan, Height 62 in Jan, BMI 42.06 kg/m2 Jan, Heart Rate 56 /min Jul, Blood pressure systolic 152 mm Hg Jul, Blood pressure diastolic 63 mm Hg Jul, MEDICATIONS Medication SIG (Take, Route, Notes Start Date End Date Status Frequency, Duration) Tumeric Active Gabapentin 400 MG Orally Active Cozaar Not-Taking Vitamin D Active Fenofibrate Active BuPROPion HCl 300 mg Acti ve [id number]-[id number] Buffered Ac tive Tramadol HCl 50MG TAKE 1 TABLET BY A ctive MOUTH EVERY 6 TO 8 HOURS NEEDED for 13 Propranolol HCl Active Nexium Active Cyclobenzaprine HCl Activ e Clonazepam Active Zoloft 200 mg Active Tramadol 1 tablet every 8 Active hours as needed for pain BETA LYDIA Not-Taking Loratadine Not-Taking B Complex - Orally Active Losartan Potassium 100 MG 1 tablet Orally Once Active a day Aspirin Not-Taking Meloxicam 15MG TAKE ONE TABLET BY Ac tive MOUTH ONCE DAILY for 90 Acetaminophen-Codeine #3 1 tablet as needed Apr, Not-Taking 300-30 MG Orally every 4 hours as needed for pain Hyzaar Not-Taking trazadone Not-Taking Synthroid 225 mg Active Requip Not-Taking Lamotrigine Not-Taking PROCEDURES No Information RESULTS No Results REASON FOR VISIT BSJ Admit, Lt shoulder pain and decreased motion for about 1 month-no injury, Left Hip and Left Knee, Medication request, Tramadol request, Medication Verification , left hand- thumb/nx/ n mri/n surgery, follow up right shoulder pain, right shoulder pain-no new injury, questions and concerns, injection sooner than 3 months?, MRI right shoulder, Recommendation , right shoulder pain and left knee pain.Fell on left knee about 1 month ago, written letter , follow up- right TKR 03-16-16, pain , Post OpRight TKR:DOS 03/16/16, Post Op Right TKR:DOS 03/16/16, driving, outpatient referral , pain medication , re- injured right knee , post op right knee; DOS 03/16/2016, post op question , Right TKR, Request for DME, pain med, bilateral knee pain, Tramadol refill, bilateral knee pain, follow up -bilateral knee pain. Several falls recently, has fallen, Right shoulder MRI results, Right shoulder pain, Rx refill tramadol, bilateral hip pain/right shoulder pain, Post-op Right TKR DOS: 04-29-15, cancel surgery, Discuss right knee surgery, how long the time between dental work and knee replacement surgeryI will have, follow up bilateral knee pain, Medication refill, Medication request, Medication refill, follow up- both knees/nx/ n mri, discuss right shoulder MRI results, MRI Order, about cost for mri., right shoulder pain for about 2 weeks after pushing herself up from the couch. Not treated, right shoulder, left hip pain and follow uo right hip pain, Appointment, Follow up Right Hip , follow up-right hip, follow up left shoulder and right hip, follow up- left shoulder RCR, post op left RCR;dos 08/02/11, Letter , Post op Left Shoulder DOS 08/02/11, Left RCR ( C asst), Rx Request, follow up left shoulder and knees. Injected helped shoulder a little. Right hip also hurts, follow up right hip and new left knee, Right hip pain, follow up left shoulder-MRI results, Discuss right shoulder MRI, MRI results, Appointments Made, MRI request by patient, bilat shoulder pain x 4 months. Patient is also c/o bilateral wrist pain and bilateral knee pain, rc b [id number] MEDICAL (GENERAL) HISTORY Type Description Date Medical History hypertension Medical History Depression Medical History Thyroid Dysfunction Surgical History Tonsillectomy Surgical History Hysterectomy Surgical History L shoulder decompression 2011 Surgical History R TKR 03-16-16 Hospitalization History Left shoulder decompression, AC rese ction 08/02/11 Goals Section No Information Health Concerns No Information MEDICAL EQUIPMENT No Information MENTAL STATUS No Information FUNCTIONAL STATUS No Information ASSESSMENTS Encounter Date Diagnosis Assessment Treatment Notes Treatment Notes Clinical Notes Jan, Nontraumatic Discussed care. I incomplete tear of recommend left rotator cuff conservative care (ICD-10 - M75.112) include NSAID's, ice, heat, rest and intra-articular injections. Today the patient received a left shoulder injection with good relief. If pain persists or worsens we may order a left shoulder MRI to evaluate for possible rotator cuff tear. F/u prn. Apr, Primary osteoarthritis Options were of left knee (ICD-10 - discussed. Patient M17.12) is advised rest, ice, heat, progressive strengthening exercises, and NSAIDs as needed. The left knee is injected with cortisone. We discussed that the ultimate solution would be a left total knee replacement but I am not ready to recommend surgery at this time Apr, Greater trochanteric My inclination is bursitis of left hip that her symptoms (ICD-10 - M70.62) are more related to inflammation of the soft tissues and she should continue to improve with time. Patient is advised rest, ice, heat, and NSAIDs as needed. She may require further workup if symptoms do not improve Jul, Osteoarthritis of CMC Recommend thumb joint of thumb (ICD-10 injection today as - M18.9) first line treatment. Jun, Primary Repeat injection osteoarthritis, right right shoulder. F/u shoulder (ICD-10 - as needed. M19.011) Jun, Biceps tendinitis of right shoulder (ICD-10 - M75.21) Feb, Primary Repeat injection osteoarthritis, right right shoulder. F/u shoulder (ICD-10 - as needed. M19.011) September, Primary Steroid injection osteoarthritis, right right shoulder. shoulder (ICD-10 - M19.011) September, Patellofemoral Gradually increase arthritis of left knee activity as (ICD-10 - M17.12) tolerated. Heat/ice and NSAID's were recommended. Follow-up as needed. Jul, Primary osteoarthritis of right knee (ICD-10 - M17.11) Jul, Status post total knee Tylenol, ice, and replacement, right heat. Active and (ICD-10 - Z96.651) passive range of motion exercises. Utilize cane as needed. Gradually increase activity as tolerated. Follow-up as needed. Jul, Other The patient was given a prescription for Ultram. May, Primary osteoarthritis of right knee (ICD-10 - M17.11) May, Status post total knee Active and passive replacement, right range of motion (ICD-10 - Z96.651) exercises. Continue therapy. Utilize cane as needed. Follow up in two months for reevaluation Apr, Primary osteoarthritis of right knee (ICD-10 - M17.11) Apr, Status post total knee Active and passive replacement, right range of motion (ICD-10 - Z96.651) exercises. Continue therapy. Gradually wean from walker to cane as tolerated. Pain medications may be refilled. The patient was given a prescription for Ultram. Mar, Primary osteoarthritis of right knee (ICD-10 - M17.11) Mar, Status post total knee Active and passive replacement, right range of motion (ICD-10 - Z96.651) exercises. Continue therapy. Gradually wean from walker to cane as tolerated. Pain medications may be refilled. The patient was given a prescription for Ultram. Jan, Primary osteoarthritis of left knee (ICD-10 - M17.12) Jan, Primary osteoarthritis Plan is for total of right knee (ICD-10 knee replacement on - M17.11) the right side. I discussed the risks of infection, transfusion, stiffness, nerve or blood vessel damage. I specifically discussed the risk of infection with possible need to remove implants. The risk of revision surgery in the future. The risk of from blood clots or other medical complications. Informed consent was given. Oct, Primary osteoarthritis of left knee (ICD-10 - M17.12) Oct, Primary osteoarthritis of right knee (ICD-10 - M17.11) Oct, Other Bilateral knee injections. She is not interested in surgery at this time Aug, Acromioclavicular joint arthritis (ICD-10 - M19.90) Aug, Right rotator cuff tendinitis (ICD-10 - M75.81) Aug, Other Intra articular steroid injection given. Aug, Tear of right rotator Schedule MRI of the cuff, unspecified tear right shoulder to extent (ICD-10 - look for rotator M75.101) cuff tear. Follow up with results Jun, Trochanteric bursitis, Inject trochanteri c Right hip (ICD-10 - bursa M70.61) Jun, Bursitis of shoulder, Subacromial right (ICD-10 - injection M75.51) Mar, Primary osteoarthritis The patient was of right knee (ICD-10 given a - M17.11) prescription for Tramadol. Patient wishes to cancel knee replacement at this time. Feb, Knee pain (ICD9-CM - 719.46) Feb, DJD (degenerative joint disease) of knee (ICD9-CM - 715.36) Feb, Other Bilateral knee injections. We discussed arthroplasty at length today. May, Knee pain (ICD9-CM - 719.46) May, DJD (degenerative joint disease) of knee (ICD9-CM - 715.36) May, Other The condition was explained. There is no easy cure for this problem. Anti-inflammatory medications, rest, and occasionally ice and compression can be helpful. Appropriate exercises were discussed. Followup p.r.n. Mar, Other affections of shoulder region, not elsewhere classified (ICD9-CM - 726.2) Dec, Other affections of Short course of shoulder region, not prednisone, if elsewhere classified symptoms do not (ICD9-CM - 726.2) resolve she will call to schedule MRI. Dec, Other affections of Subacromial shoulder region, not injection right and elsewhere classified left shoulder (ICD9-CM - 726.2) Dec, Other affections of Subacromial shoulder region, not injection right and elsewhere classified left shoulder (ICD9-CM - 726.2) Mar, Bursitis, Hip or Inject trochanteric trochanteric (ICD9-CM bursa - 726.5) Nov, Other affections of Have recommended shoulder region, not physical therapy elsewhere classified but she cannot (ICD9-CM - 726.2) afford that right now. Nov, Bursitis, Hip or Inject trochanteric trochanteric (ICD9-CM bursa - 726.5) Oct, Other affections of shoulder region, not elsewhere classified (ICD9-CM - 726.2) Oct, Other Passive ROM exercises, active range of motion exercises Oct, Other Passive ROM exercises, active range of motion exercises Aug, Other affections of shoulder region, not elsewhere classified (ICD9-CM - 726.2) Aug, Other Passive ROM exercises, active range of motion exercises Aug, Other Passive ROM exercises, active range of motion exercises Jul, Other affections of shoulder region, not elsewhere classified (ICD9-CM - 726.2) Jul, Bursitis, Hip or Inject trochanteric trochanteric (ICD9-CM bursa - 726.5) Jul, Other Passive ROM exercises Jul, Complete rotator cuff tear or rupture of right shoulder, not specified as traumatic (ICD9-CM - 727.61) Jun, Rotator Cuff Tear Arthroscopic (ICD9-CM - 727.61) rotator cuff repair.We discussed the risk of stiffness, infection, persistent weakness. We discussed the importance of postoperative exercises and immobilization in a sling. We discussed the fact that rerupture of the repair can easily occur in the postoperative period. Wound care was discussed. Informed consent was given. May, DJD, knee, lower leg, Intra-articular not specified whether injection of primary or secondary steroid and local (ICD9-CM - 715.36) anesthetic. May, Bursitis, Hip or Inject trochanteric trochanteric (ICD9-CM bursa - 726.5) Mar, Other affections of Subacromial shoulder region, not injection elsewhere classified (ICD9-CM - 726.2) Dec, Other affections of Subacromial shoulder region, not injection elsewhere classified (ICD9-CM - 726.2) PLAN OF TREATMENT Medication Medication Name Sig Start Date Stop Date Tramadol HCl 50MG TAKE 1 TABLET BY MOUTH EVERY 6 TO 8 HOURS NEEDED for 13 Meloxicam 15MG TAKE ONE TABLET BY MOUTH ONCE DAILY for 90 Treatment Notes Assessment Notes Clinical Notes Other affections of shoulder Subacromial injection right and region, not elsewhere classified left shoulder Other affections of shoulder Subacromial injection right and region, not elsewhere classified left shoulder Nontraumatic incomplete tear of Discussed care. I recommend left rotator cuff conservative care include NSAID's, ice, heat, rest and intra-articular injections. Today the patient received a left shoulder injection with good relief. If pain persists or worsens we may order a left shoulder MRI to evaluate for possible rotator cuff tear. F/u prn. Primary osteoarthritis, right Repeat injection right shoulde r. shoulder F/u as needed. Primary osteoarthritis of right The patient was given a knee prescription for Tramadol. Patient wishes to cancel knee replacement at this time. Other affections of shoulder Have recommended physical thera py region, not elsewhere classified but she cannot afford that right now. Bursitis, Hip or trochanteric Inject trochanteric bursa Trochanteric bursitis, Right hip Inject trochanteric bursa Other affections of shoulder Subacromial injection region, not elsewhere classified Osteoarthritis of CMC joint of Recommend thumb injection tod ay as thumb first line treatment. Primary osteoarthritis of right Plan is for total knee repla cement knee on the right side. I discussed the risks of infection, transfusion, stiffness, nerve or blood vessel damage. I specifically discussed the risk of infection with possible need to remove implants. The risk of revision surgery in the future. The risk of from blood clots or other medical complications. Informed consent was given. Rotator Cuff Tear Arthroscopic rotator cuff repair.We discussed the risk of stiffness, infection, persistent weakness. We discussed the importance of postoperative exercises and immobilization in a sling. We discussed the fact that rerupture of the repair can easily occur in the postoperative period. Wound care was discussed. Informed consent was given. Status post total knee replacement, Active and passive range of motion right exercises. Continue therapy. Gradually wean from walker to cane as tolerated. Pain medications may be refilled. The patient was given a prescription for Ultram. Other affections of shoulder Short course of prednisone, if region, not elsewhere classified symptoms do not resolve she will call to schedule MRI. Patellofemoral arthritis of left Gradually increase activity as knee tolerated. Heat/ice and NSAID's were recommended. Follow-up as needed. Bursitis, Hip or trochanteric Inject trochanteric bursa Greater trochanteric bursitis of My inclination is that her symptoms left hip are more related to inflammation of the soft tissues and she should continue to improve with time. Patient is advised rest, ice, heat, and NSAIDs as needed. She may require further workup if symptoms do not improve Bursitis, Hip or trochanteric Inject trochanteric bursa Status post total knee replacement, Tylenol, ice, and heat. Active and right passive range of motion exercises. Utilize cane as needed. Gradually increase activity as tolerated. Follow-up as needed. Other affections of shoulder Subacromial injection region, not elsewhere classified Bursitis of shoulder, right Subacromial injection Primary osteoarthritis of left knee Options were discussed. Patient is advised rest, ice, heat, progressive strengthening exercises, and NSAIDs as needed. The left knee is injected with cortisone. We discussed that the ultimate solution would be a left total knee replacement but I am not ready to recommend surgery at this time Primary osteoarthritis, right Steroid injection right should er. shoulder Status post total knee replacement, Active and passive range of motion right exercises. Continue therapy. Gradually wean from walker to cane as tolerated. Pain medications may be refilled. The patient was given a prescription for Ultram. Status post total knee replacement, Active and passive range of motion right exercises. Continue therapy. Utilize cane as needed. Follow up in two months for reevaluation Bursitis, Hip or trochanteric Inject trochanteric bursa DJD, knee, lower leg, not specified Intra-articular injectio n of whether primary or secondary steroid and local anesthetic. Primary osteoarthritis, right Repeat injection right shoulde r. shoulder F/u as needed. Tear of right rotator cuff, Schedule MRI of the right should er unspecified tear extent to look for rotator cuff tear. Follow up with results Referrals Referral Date Details 2015-09-23 2015-09-23, MRI right should er [facility] 09/23/2015, . [facility] 2016-11-17 2016-11-17, MRI right should er [facility] 11/17/2016 CCM request Insurance Providers Payer Name Payer Address Payer Insured Patient Coverage Cover age Phone Name Relationship to Start Date End Date Insured [employer] [facility] [address] [address] [phone] Suri Guerrero Supplemental [facility] [address] [id number] Medicare [address] ATTN [phone] Suri Guerrero Part B Claims [id number] [place] [phone]
[2020-04-15] MEDS: Ondansetron PF 4 MG/2 ML Vial IVP PRN ×2 (14:21→21:59)
[2020-04-15] MEDS: Sodium Chloride 0.9% 1,000 ML IV SCH (14:32)
[2020-04-15] MEDS: Azithromycin 500 MG in Sodium Chloride 0.9% 250 ML 250 ML IVPB SCH (14:33)
[2020-04-15] MEDS ORDERED: Propranolol HCl 20 MG TAB PO SCH (15:00)
[2020-04-15] MEDS: cefTRIAXone\\ROCEPHIN 2 GM in Sodium Chloride 0.9% 100 ML IVPB SCH (20:22)
[2020-04-16] MEDS: Acetaminophen 500 MG TAB PO PRN (01:24)
[2020-04-16] MEDS: Propranolol HCl 20 MG TAB PO SCH ×3 (01:26→15:23)
[2020-04-16 05:18] LABS: ALT (SGPT) 221 U/L (8-55); AST (SGOT) 433 U/L (5-34); Albumin 2.9 g/dL (3.4-4.8); Alkaline Phosphatase 142 U/L (40-110); Anion Gap 18 mmol/L (10-20); BUN (Urea Nitrogen) 43 mg/dL (9.8-20.1); Bilirubin, Total 1.3 mg/dL (0.2-1.2); Calc. Creatinine Clearance 77 mL/min (70-130); Carbon Dioxide 17 mmol/L (23-31); Chloride 98 mmol/L (98-107); Glucose 189 mg/dL (83-110); Potassium 4.2 mmol/L (3.5-5.1); Protein, Total 5.9 g/dL (6.0-8.3); Sodium 129 mmol/L (136-145)
[2020-04-16] MEDS: Levothyroxine Sodium 100 MCG TAB PO SCH (05:30)
[2020-04-16 05:46] LABS: SARS-CoV-2 MS2 Positive; SARS-CoV-2 N Gene Negative; SARS-CoV-2 S Gene Negative; SARS-CoV-2 by NAA Not Detected (NotDetected); SARS-CoV-2 orf1ab Negative
[2020-04-16 06:08] LABS: Band 13 % (5-11); Burr Cells SLIGHT = 2-5 cells (100X) (0-1/hpf); Eosinophils 1 % (0-10); Hemoglobin 10.9 g/dL (12.0-16.0); Large Platelets SLIGHT; Lymphocytes 12 % (21-51); MDiff Complete? YES; Mean Corpuscular Hemoglobin 28.9 pg (27.0-31.0); Mean Corpuscular Volume 87.6 fL (78.0-98.0); Mean Platelet Volume 10.2 fL (7.4-10.4); Monocytes 3 % (0-10); Neutrophil 71 % (42-75); Platelet Count 180 thou/uL (130-400); Platelet Morphology Comment Appears Adequate; Polychromasia SLIGHT = 2-3 cells (100X) (0-2/hpf); RBC Distribution Width 13.9 % (11.5-14.5); Red Blood Cell (RBC) Count 3.78 mill/uL (4.20-5.40); Toxic Granulation SLIGHT; Vacuoles SLIGHT; White Blood Cell (WBC) Count 9.5 thou/uL (4.8-10.8)
[2020-04-16 06:20] VITALS: BP 131/61; TEMP 98.6
--- NOTE | 2020-04-16 09:01 | CT ---
Exam: Abdomen CT with contrast HISTORY: Elevated liver enzymes. Possible ascites. FINDINGS: There are small bilateral effusions with adjacent bibasilar consolidation due to atelectasis, pneumon ia or aspiration. Normal heart size. No significant pericardial fluid. No gastrohepatic, retrocrural or periportal lymphadenopathy. Small amount of fluid in both paracolic gutters. There is symmetric enhancement of the kidneys. There is a nonobstructing 2 mm calculus in the right intrarenal collecting system. Note, the right kidney is horizontally oriented, with respect to the left kidney which is more vertically oriented. B ilaterally no obstructive uropathy. Appropriate enhancement of the liver, spleen, pancreas and adrenal glands. CT evidence of cholelithiasis. There does appear to be gallbladder wall thickening and pericholecysti c fluid. Correlate for possible cholecystitis. Visualized common bile duct does not appear to be enlarged. There appears be mild bowel wall thickening and stranding involving the duodenum. Correlate for duode nitis. Remaining visualized alimentary canal is grossly unremarkable. No lytic or blastic lesions in the osseous structures. IMPRESSION: 1. No significant ascites. Small amount of fluid in both paracolic gutters. 2. CT evidence of cholelithiasis with possible cholecystitis. Consider gallbladder ultrasound. 3. Small bibasilar pleural effusions and parenchymal changes due to atelectasis, aspiration or pneumo truman. Results of study conveyed to Nneka Coon via [employer] 04/16/2020 8:59 AM Code CR Transcribed Date/Time: 04/16/2020 9:42 AM
[2020-04-16] MEDS ORDERED: Furosemide 20 MG/2 ML VIAL SLOW IVP SCH (09:30)
[2020-04-16] MEDS: Thiamine 100 MG TAB PO SCH ×2 (09:56→15:24)
[2020-04-16] MEDS: rOPINIRole HCl 2 MG TAB PO SCH (09:58)
[2020-04-16] MEDS: clonazePAM 0.5 MG TAB PO SCH (09:58)
[2020-04-16] MEDS: Folic Acid 1 MG TAB PO SCH ×2 (10:05→15:24)
[2020-04-16] MEDS: Azithromycin 500 MG in Sodium Chloride 0.9% 250 ML 250 ML IVPB SCH (14:46)
[2020-04-16] MEDS: Insulin Regular 300 UNITS/3 ML VIAL SC PRN (14:58)
--- NOTE | 2020-04-18 04:09 | DIS ---
DATE OF ADMISSION: 04/11/2020 DATE OF DISCHARGE: 04/16/2020 DISCHARGE DIAGNOSES: Respiratory distress, altered mental status, elevated liver enzymes. DISPOSITION: The patient was transferred to [facility]. HOSPITAL COURSE: 69-year-old female admitted with rhabdomyolysis. Her initial CK was 3572. She arrived per EMS to the emergency room having been found lying on her bathroom floor with altered mental status for an unknown period of time She was hydrated over the course of 2- to 3-days and seemed to be doing well except for her persistent altered mental status. She remains oriented x3, but experiencing visual hallucinations. On the night of 04/14/2020, she developed some mild respiratory distress. A chest x-ray showed possible early left lower lobe infiltrate. Her WBC vinayak from 7.2 to 9.5 with 13% bands. Her UA was negative except for large bilirubin. The following morning, her ammonia was slightly elevated at 83, and her liver enzymes were very elevated, AST was 43, ALT 222, albumin was 2.9. Her creatinine had risen from normal to 1.12. She continued to need oxygen to maintain her sats. Since her admission, she had complained intermittently of right upper quadrant and right flank pain, but given all the bruising and negative initial chest and abdomen CT, it was thought likely related to trauma, fall. However, given her abnormal labs, repeated her CT abdomen showed possible acute cholecystitis with gallstones. Given her altered mental status, encephalopathy is also possibility whether it be metabolic or hepatic as her sodium dropped from a normal level to 131, 133, then down to 129 on the day of transfer. She was refusing p.o. fluid at this time as well. ALLERGIES: SOFIA inhibitors, iodine, pseudoephedrine, statins, and topiramate. CODE STATUS: She is a full code. HOME MEDICATIONS: 1. Aspirin. 2. Metformin. 3. Gabapentin. 4. Cyclobenzaprine. 5. Levothyroxine. 6. Tramadol. 7. Clonazepam. 8. Losartan. 9. Sertraline. 10. Propranolol. 11. Ropinirole. 12. Protonix. 13. Levothyroxine. We started her on folic acid and thiamine and a course of antibiotics for possible left lower lobe pneumonia. Much of her home medications were held during the course of her stay in an effort to observe whether or not detox might improve her mental status. 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 Job ID: [id number]
--- NOTE | 2020-04-21 13:08 | PQF ---
CLINICAL DOCUMENTATION CLARIFICATION FORM: Dear : Ariel Yanez Date / Time: 04/21/2020 Please exercise your independent, professional judgment in responding to the clarification form. Clinical indicators are provided on the bottom of this form for your review Please check appropriate box(es): [ x ] Rhabdomyolysis is due to polypharmacy and alcohol use [ ] Rhabdomyolysis is not due to polypharmacy and alcohol use [ ] Other diagnosis [ ] Unable to determine In addition, please specify: Present on Admission (POA): [ x ] Yes [ ] No [ ] Unable to determine To be completed by CDI/Coding staff for physician review: Present Clinical Indicators - Signs / Symptoms / Labs Results and Location in Medical Record [ x ] Rhabdomyolysis related to immobility for unknown period of days, likely as a result of altered mental status from combination polypharmacy and heavy alcohol use H and P [ x ] Polypharmacy combined with alcohol abuse. After discussion, the patient agreed to monitored inpatient detox H and P [ x ] She admits to taking occasional hydrocodone from an old prescription H and P Present Risk Factors Results and Location in Medical Record [ x ] Alcohol abuse, polypharmacy, usage of hydrocodone from old prescription H and P Present Treatments Results and Location in Medical Record [ x ] Patient advised about monitored inpatient detox and patient agreed H and P [ x ] Discontinue all narcotic pain medications aside from tramadol H and P CDS/Home Health Occupational Therapist Signature: [id number] Phone #: Date/Time: 04/21/2020 This is a permanent part of the Medical Record [facility]
== END 2020-04-16 16:55 | disposition short-term general hospital (02) | DRG 917 ==
LOC: BURERS 00:55 → OBSVTOIN 03:46 → BURMED 03:46
PROVIDERS: ADMIT Family Medicine; ATTEND Family Medicine
DX: T50.911A Poisoning by multiple unspecified drugs, medicaments and biological substances, accidental (unintentional), initial encounter (principal); G93.41 Metabolic encephalopathy; J18.9 Pneumonia, unspecified organism; M62.82 Rhabdomyolysis; K80.00 Calculus of gallbladder with acute cholecystitis without obstruction; F03.90 Unspecified dementia, unspecified severity, without behavioral disturbance, psychotic disturbance, mood disturbance, and anxiety; F32.9 Major depressive disorder, single episode, unspecified; E03.9 Hypothyroidism, unspecified; I10 Essential (primary) hypertension; Z20.828 Contact with and (suspected) exposure to other viral communicable diseases; R44.1 Visual hallucinations; G25.81 Restless legs syndrome; E11.9 Type 2 diabetes mellitus without complications; K72.90 Hepatic failure, unspecified without coma; Z96.651 Presence of right artificial knee joint; T51.91XA Toxic effect of unspecified alcohol, accidental (unintentional), initial encounter; M19.90 Unspecified osteoarthritis, unspecified site; R94.5 Abnormal results of liver function studies; R06.03 Acute respiratory distress; Z90.89 Acquired absence of other organs; Z90.710 Acquired absence of both cervix and uterus; Z88.8 Allergy status to other drugs, medicaments and biological substances; Z91.041 Radiographic dye allergy status
CPT/HCPCS: 36415; 36416; 51701; 70450; 71045; 71250; 72125; 74160; 74177; 80048; 80053; 81001; 81003; 81015; 82140; 82550; 83036; 83605; 83880; 83970; 84439; 84443; 85025; 85610; 87086; 87635; 93005; 96374; J0456; J0696; J1815; J1940; J2405; J3490; J7030; J7050; Q0162; U0003